=== PATIENT | female | born 1985 | race Caucasian/White ===

== ENCOUNTER 2025-06-28 10:32 | Emergency (ER) | payer OTHER ==
[~2025-06-28] VITALS: Ht 172.7 cm; Wt 77.2 kg
[2025-06-28] MEDS ORDERED: DICL75TA PO (12:15)
[2025-06-28] MEDS ORDERED: METH-1165 PO (12:15)
[2025-06-28 12:22] VITALS: BP 122/79; TEMP 97.5; O2SAT 98
== END 2025-06-28 12:52 | disposition home or self-care (01) ==
LOC: M ED 10:32
DX: S46.811A Strain of other muscles, fascia and tendons at shoulder and upper arm level, right arm, initial encounter (principal); S14.3XXA Injury of brachial plexus, initial encounter; Y92.9 Unspecified place or not applicable; Y93.9 Activity, unspecified; Y99.0 Civilian activity done for income or pay; Z79.899 Other long term (current) drug therapy